=== PATIENT | female | born 1975 | race Caucasian/White ===

== ENCOUNTER → 2017-01-24 | Outpatient (CLI) | payer BC ==
[~2017-01-24] MED LIST: GADOBUTROL 10 ML VIAL IVP ONE
== END ==
LOC: FIMAGING 13:06
PROVIDERS: ATTEND Surgery
DX: N64.4 Mastodynia (principal); Z90.13 Acquired absence of bilateral breasts and nipples; Z98.890 Other specified postprocedural states; Z15.01 Genetic susceptibility to malignant neoplasm of breast
CPT/HCPCS: 0159T; 77059; A9585; C8907